=== PATIENT | male | born 1995 | race Caucasian/White ===

== ENCOUNTER 2018-05-01 02:51 | Emergency (ER) | payer BC ==
[~2018-05-01] VITALS: Ht 174 cm; Wt 72.3 kg
[2018-05-01 02:56] VITALS: TEMP 36.4; Ht 174 cm; Wt 72.3 kg
[2018-05-01] MEDS ORDERED: SODIUM CHLORIDE 0.9% 1000ML 1,000 ML IV STA (03:08)
[2018-05-01] MEDS ORDERED: ONDANSETRON INJ 2 MG/ML 2 ML VIAL IV STA ×2 (03:08→04:38)
[2018-05-01] MEDS ORDERED: KETOROLAC TROMETHAMINE 15 MG/ML VIAL IV STA (03:08)
--- NOTE | 2018-05-01 03:17 | EMERGENCY ROOM VISIT NOTE ---
History First contact with patient: 02:59 Chief Complaint: ABDOMINAL PAIN Stated Complaint: SEVERE ABDOMINAL CRAMPING History of Present Illness The patient is a 22 year old male who presents to the Emergency Room with complaints of abdominal cramping and diarrhea which began about 4 hours ago. The patient states that his symptoms began about 30 minutes after eating sushi. He states he has had diarrhea and nausea. He reports left-sided abdominal cramping. Rates his discomfort a 5/10 and states that it is constant. He has not vomited. He does state that he has a history of having abdominal pain at times after eating. He has never been diagnosed with any abdominal issues. He denies any fever/chills or urinary symptoms. He denies melena or hematochezia. Review of Systems A complete 10 point review of systems was reviewed with the patient with pertinent positives and negatives as per history of present illness. All else were negative. Past Medical/Surgical History Medical Problems: (1) No significant active problems Social History Smoking Status: Never Smoker Alcohol Use: none Occupation Status: [employer] student Current/Historical Medications Scheduled Diphenhydramine Hcl (Allergy), 25 MG PO HS Melatonin (Melatonin Maximum Strengt), 1 TAB PO HS Ondasetron Odt (Zofran Odt), 4 MG SL Q6H Physical Exam Vital Signs Date Time Temp Pulse Resp B/P (MAP) Pulse Ox O2 Delivery O2 Flow Rate FiO2 05/01/18 05:52 60 18 122/72 98 Room Air 05/01/18 04:51 54 18 133/68 98 Room Air 05/01/18 02:56 36.4 52 17 138/80 100 Room Air Physical Exam VITALS: Vitals are noted on the nurse's note and reviewed by myself. Vital signs stable. GENERAL: This is a 22-year-old male, in no acute distress, nondiaphoretic, well- developed well-nourished. HEENT: PERRLA. TMs clear bilaterally. Mucous membranes moist. HEART: Regular rate and rhythm without murmurs gallops or rubs. LUNGS: Clear to auscultation bilaterally without wheezes, rales or rhonchi. ABDOMEN: Positive bowel sounds x 4. Abdomen is soft and nondistended. No guarding or rebound tenderness. NEURO: Patient was alert and oriented to person place and time. Medical Decision & Procedures ER Provider Diagnostic Interpretation: ABDOMINAL SERIES: Nonobstructive bowel gas pattern. No free air. Per my interpretation. Laboratory Results 05/01/18 03:16 Red Blood Count 5.41, Mean Corpuscular Volume 81.3, Mean Corpuscular Hemoglobin 29.2, Mean Corpuscular Hemoglobin Concent 35.9, Mean Platelet Volume 9.8, Neutrophils (%) (Auto) 53.5, Lymphocytes (%) (Auto) 32.9, Monocytes (%) (Auto) 7.7, Eosinophils (%) (Auto) 5.3, Basophils (%) (Auto) 0.4, Neutrophils # (Auto) 5.36, Lymphocytes # (Auto) 3.29, Monocytes # (Auto) 0.77, Eosinophils # (Auto) 0.53, Basophils # (Auto) 0.04 05/01/18 03:16 Test 05/01/18 03:16 White Blood Count 10.01 K/uL (4.8-10.8) Red Blood Count 5.41 M/uL (4.7-6.1) Hemoglobin 15.8 g/dL (14.0-18.0) Hematocrit 44.0 % (42-52) Mean Corpuscular Volume 81.3 fL (80-100) Mean Corpuscular Hemoglobin 29.2 pg (25-34) Mean Corpuscular Hemoglobin Concent 35.9 g/dl (32-36) Platelet Count 223 K/uL (130-400) Mean Platelet Volume 9.8 fL (7.4-10.4) Neutrophils (%) (Auto) 53.5 % Lymphocytes (%) (Auto) 32.9 % Monocytes (%) (Auto) 7.7 % Eosinophils (%) (Auto) 5.3 % Basophils (%) (Auto) 0.4 % Neutrophils # (Auto) 5.36 K/uL (1.4-6.5) Lymphocytes # (Auto) 3.29 K/uL (1.2-3.4) Monocytes # (Auto) 0.77 K/uL (0.11-0.59) Eosinophils # (Auto) 0.53 K/uL (0-0.5) Basophils # (Auto) 0.04 K/uL (0-0.2) RDW Standard Deviation 38.0 fL (36.4-46.3) RDW Coefficient of Variation 12.8 % (11.5-14.5) Immature Granulocyte % (Auto) 0.2 % Immature Granulocyte # (Auto) 0.02 K/uL (0.00-0.02) Anion Gap 10.0 mmol/L (3-11) Est Creatinine Clear Calc Drug Dose 130.3 ml/min Estimated GFR () 142.7 Estimated GFR (Non- 123.1 BUN/Creatinine Ratio 17.0 (10-20) Calcium Level 8.7 mg/dl (8.5-10.1) Total Bilirubin 0.6 mg/dl (0.2-1) Aspartate Amino Transf (AST/SGOT) 44 U/L (15-37) Alanine Aminotransferase (ALT/SGPT) 59 U/L (12-78) Alkaline Phosphatase 87 U/L (45-117) Total Protein 8.1 gm/dl (6.4-8.2) Albumin 4.1 gm/dl (3.4-5.0) Globulin 4.0 gm/dl (2.5-4.0) Albumin/Globulin Ratio 1.0 (0.9-2) Medications Administered Medications (Trade) Dose Ordered Sig/Carlos Route Start Time Stop Time Status Last Admin Dose Admin Sodium Chloride 1,000 ml @ 999 mls/hr Q1H1M STAT IV 05/01/18 03:08 05/01/18 04:08 DC 05/01/18 03:23 999 MLS/HR Ondansetron HCl (Zofran Inj) 4 mg NOW STAT IV 05/01/18 03:08 05/01/18 03:10 DC 05/01/18 03:24 4 MG Ketorolac Tromethamine (Toradol Inj) 15 mg NOW STAT IV 05/01/18 03:08 05/01/18 03:10 DC 05/01/18 03:24 15 MG Ondansetron HCl (Zofran Inj) 4 mg NOW STAT IV 05/01/18 04:38 05/01/18 04:40 DC 05/01/18 04:48 4 MG Ondansetron HCl (ZOFRAN ODT 4MG Home Pack) 1 homepack UD ONCE PO 05/01/18 05:45 05/01/18 05:46 DC 05/01/18 05:49 1 HOMEPACK Medical Decision Differential diagnosis includes gastroenteritis, colitis, diverticulitis, appendicitis, cholecystitis, among others. The patient is a 22-year-old male who presents today complaining of abdominal cramping and diarrhea. The patient's symptoms started 30 minutes after eating sushi. Labs revealed no leukocytosis, anemia or concerning electrolyte abnormalities. Patient was treated with IV fluids and Zofran with improvement of symptoms. He was advised to follow-up with his PCP for a recheck. He was given a prescription for Zofran. Based on the patient's presentation and work up, I feel the patient is stable for outpatient treatment. The patient was educated to return to the emergency department for any worsening of their current condition or new/concerning symptoms. He will follow up with his PCP. Medication Reconcilliation Current Medication List: was personally reviewed by me Blood Pressure Screening Patient's blood pressure: Normal blood pressure Impression Primary Impression: Generalized abdominal cramping Additional Impression: Diarrhea Departure Information Dispostion Home / Self-Care Condition GOOD Prescriptions Ondasetron Odt (ZOFRAN ODT) 4 Mg Tab 4 MG SL Q6H for Nausea, #16 TAB Prov: Enma Eli ., MIRTA 05/01/18 Referrals No Doctor, Assigned (PCP) Patient Instructions My [facility] Additional Instructions You have been treated in the Emergency Department for your Abdominal Pain. Laboratory results and imaging studies have ruled out any emergent causes for your abdominal pain which would warrant admission or surgery. You have been prescribed Zofran to be used for any nausea or vomiting. Take as prescribed. For pain control, you can use the following [id number] medicines (if >12 yo): - Regular strength (325mg/tab) Tylenol (acetaminophen) 2 tabs every 4-6 hours as needed. Do not exceed 12 tablets in a 24 hour period. Avoid taking more than 4 grams (4000 mg) of Tylenol per day. This includes any other sources of acetaminophen you may take on a regular basis. - Regular strength (200 mg/tab) Advil (ibuprofen) 3-4 tabs every 6 hours as needed. Do not exceed a dose of 3200 mg per day. Drink plenty of water and stay well hydrated. As with any trip to the Emergency Department, you should follow-up with your Primary Care Provider from today's visit. Return to the emergency department if your symptoms persist despite treatment plan outlined above or if the following symptoms occur: Worsening pain, vomiting , fevers or other new/concerning symptoms. Problem Qualifiers Additional Impression: Diarrhea Diarrhea type: unspecified type Qualified Codes: R19.7 - Diarrhea, unspecified
[2018-05-01 03:26] LABS: BASO % 0.4 %; BASO ABS # 0.04 K/uL (0-0.2); EOS % 5.3 %; EOS ABS # 0.53 K/uL (0-0.5); HEMOGLOBIN 15.8 g/dL (14.0-18.0); IG# 0.02 K/uL (0.00-0.02); LYMPH % 32.9 %; LYMPH ABS # 3.29 K/uL (1.2-3.4); MEAN CELL VOLUME 81.3 fL (80-100); MEAN CORPUSCULAR HEMOGLOBIN 29.2 pg (25-34); MEAN CORPUSCULAR HGB CONC 35.9 g/dl (32-36); MEAN PLATELET VOLUME 9.8 fL (7.4-10.4); MONO % 7.7 %; MONO ABS # 0.77 K/uL (0.11-0.59); NEUT % 53.5 %; NEUT ABS # 5.36 K/uL (1.4-6.5); PLATELET COUNT 223 K/uL (130-400); RED CELL DISTRIBUTION WIDTH CV 12.8 % (11.5-14.5); WHITE BLOOD COUNT 10.01 K/uL (4.8-10.8)
[2018-05-01 03:57] LABS: ALBUMIN 4.1 gm/dl (3.4-5.0); CALCIUM 8.7 mg/dl (8.5-10.1); CREATININE 0.89 mg/dl (0.60-1.40); POTASSIUM 3.7 mmol/L (3.5-5.1); TOTAL PROTEIN 8.1 gm/dl (6.4-8.2)
[2018-05-01] MEDS ORDERED: DIPH25TA61 PO (04:18)
[2018-05-01] MEDS ORDERED: MELATAB2 PO (04:18)
[2018-05-01] MEDS ORDERED: ONDANSETRON HOME PACK 4MG OD TAB PO ONE (05:45)
[2018-05-01 05:52] VITALS: BP 122/72; PULSE 60; O2SAT 98
[2018-05-01] MEDS ORDERED: ONDA4TAB10 SL (05:53)
--- NOTE | 2018-05-01 07:19 | DIAGNOSTIC IMAGING REPORT ---
CHEST AND ABDOMEN 2 VIEWS HISTORY: Generalized abdominal pain. Diarrhea. COMPARISON: None. FINDINGS: The lungs are clear. The cardiomediastinal silhouette is within normal limits. There is no pneumoperitoneum or pneumatosis. The bowel gas pattern is unremarkable. No evidence for bowel obstruction. No pathologic calcifications. IMPRESSION: No acute cardiopulmonary process. No evidence for bowel obstruction. Electronically signed by: Ar Michaud M.D. 05/01/2018 7:18 AM Dictated Date/Time: 05/01/2018 7:17 AM
== END 2018-05-01 06:00 | disposition home or self-care (01) ==
LOC: C.EDB 02:53 → C.EDA 06:00
DX: R19.7 Diarrhea, unspecified (principal)